=== PATIENT | female | born 1955 | race American Indian/Alaskan Native ===

== ENCOUNTER 2020-06-28 10:01 | Inpatient (IN) | payer MEDICARE, OTHER ==
--- NOTE | 2020-06-23 10:33 | Anesthesia Consultation ---
Anesthesia Consult and Med Hx Date of service: 06/28/20 - Airway Anesthetic Teeth Evaluation: Edentulous ROM Head & Neck: Adequate Mental/Hyoid Distance: Adequate Mallampati Class: Class II Intubation Access Assessment: Good - Pre-Operative Health Status ASA Pre-Surgery Classification: ASA2 Proposed Anesthetic Plan: General Nerve Block: TAP - Pulmonary Hx Smoking: Yes (Quit 1998) Hx Asthma: No Hx Respiratory Symptoms: No (+2FS) COPD: No Hx Pneumonia: No Hx Sleep Apnea: No (ROBERT PRE SCREEN LOW RISK) - Cardiovascular System Hx Hypertension: No (DENIES HTN-ONLY TAKES TO PROTECT KIDNEYS SHE SAID.) Hx Heart Attack/AMI: No Hx Angina: Yes (with exertion - relieved by rest-PATIENT SAID SHE NEVER HAD THIS ???) Hx Pacemaker: No Hx Internal Defibrillator: No Hx Heart Murmur: No - Central Nervous System Hx Neuromuscular Disorder: Yes (peripheral neuropathy) Hx Seizures: No CVA: No Hx Back Pain: Yes (lower) Hx Psychiatric Problems: Yes (Anxiety/Depression) - Gastrointestinal Hx Gastroesophageal Reflux Disease: Yes (rare) - Endocrine Hx Renal Disease: No Hx End Stage Renal Disease: No Hx Cirrhosis: No Hx Liver Disease: No Hx Insulin Dependent Diabetes: Yes (B) Hx Non-Insulin Dependent Diabetes: Yes Hx Thyroid Disease: No - Hematic Hx Anemia: No Hx Sickle Cell Disease: No - Other Systems Hx Alcohol Use: No Hx Substance Use: No Hx Cancer: No Hx Obesity: No
[2020-06-23 10:51] LABS: Hematocrit 40.3 % (30.3-42.9); Hemoglobin 13.5 gm/dl (10.1-14.3); Mean Corpuscular HGB Conc 33 % (30-34); Mean Corpuscular Volume 93 fl (79-97); Platelet Count 300 K/mm3 (140-440); Red Blood Count 4.35 M/mm3 (3.65-5.03); Red Cell Distribution Width 13.4 % (13.2-15.2)
[2020-06-23 11:01] LABS: BUN/Creatinine Ratio 9; Blood Urea Nitrogen 10 mg/dL (7-17); Calcium 10.4 mg/dL (8.4-10.2); Hemolysis Index 1
[2020-06-28] MEDS: LACTATED RINGERS 1,000 ML IV SCH ×2 (08:45→16:35)
--- NOTE | 2020-06-28 08:58 | Anesthesia Day of Surgery ---
Anesthesia Day of Surgery - Day of Surgery Patient Examined: Yes Patient H&P Reviewed: Yes Patient is NPO: Yes
--- NOTE | 2020-06-28 08:58 | Progress Note ---
Regional Anesthesia Block - Regional Anesthesia Block Start Time: 08:47 Stop Time: 08:54 Performed By:: LAVON VILLAGOMEZ Procedure: Bilateral Ultrasound Guided TAP Block Pt IDd, consent obtained, time out performed. Pt on monitor + O2 via NC, VS stable, sedation given per pre-op RN. Sterile prep. Landmarks identified with ultrasound. [1.5]cc skin wheel with 1% lidocaine. Needle advance in plane with ultrasound. [30]cc [0.25]% bupivacaine [w/ epi] + [4]mg decadron + [100]mcg clonidine injected incrementally with negative aspiration. Procedure repeated on opposite side. Pt tolerated procedure well, no immediate complications noted.
[~2020-06-28 10:01] MED LIST: ACETAMINOPHEN 500 MG TAB PO ONE; BUPIVACAINE-EPINEPHRINE/PF 0.25%-1:200,000 (10 ML) VIAL INFILTRATI ONE; BUPIVACAINE-EPINEPHRINE/PF 0.5%-1:200,000 (30 ML) VIAL INFILTRATI ONE; CELECOXIB 200 MG CAP PO NR; GABAPENTIN 300 MG CAP PO NR; LIDOCAINE (1%) 10 MG/1 ML VIAL 20 ML MDV ONE; LIDOCAINE MPF (2%) 20 MG/1 ML VIAL 5 ML ONE; MAGNESIUM OXIDE 400 MG TAB PO NR; MIDAZOLAM 2 MG/2 ML INJ IV NR; ONDANSETRON 4 MG/2 ML INJ IV PRN; ONDANSETRON 4 MG/2 ML INJ ONE; ROCURONIUM 50 MG/5 ML INJ IV ONE; SUCCINYLCHOLINE CHLORIDE 200 MG/10 ML INJ MDV ONE; ceFAZolin/Water 2 GM/20 ML 2 GM/20 ML SYRINGE IV NR; dexAMETHasone 20 MG/5 ML VIAL ONE; ePHEDrine SULFATE 50 MG/1 ML INJ ONE; fentaNYL 100 MCG/2 ML INJ IV NR; fentaNYL 100 MCG/2 ML INJ IV PRN; fentaNYL 100 MCG/2 ML INJ ONE; metroNIDAZOLE/NS 500 MG/100 ML 500 MG/100 ML BAG IV NR; propofoL 200 MG/20 ML VIAL IV ONE
[2020-06-28] MEDS ORDERED: SODIUM CHLORIDE 0.9% IRR 1,500 ML BOTTLE IR ONE (10:22)
[2020-06-28] MEDS ORDERED: WATER FOR IRRIG STERILE 1,500 ML BOTTLE IR ONE (10:50)
[2020-06-28] MEDS ORDERED: MINERAL OIL Light (Sterile) 10 ML VIAL TP ONE ×2 (10:58→11:00)
[2020-06-28] MEDS ORDERED: GLYCOPYRROLATE 0.4 MG/2 ML INJ ONE (12:06)
[2020-06-28] MEDS ORDERED: NEOSTIGMINE 10MG/10 ML INJ MDV ONE (12:06)
--- NOTE | 2020-06-28 13:17 | Post Operative Note ---
Pre-op diagnosis: sessile cecal polyp Post-op diagnosis: same Procedure: laparoscopic right hemicolectomy Anesthesia: GETA, other (TAP block) Surgeon: GERTRUDIS VERA Manipulator Operator: YAMILA GONSALES Estimated blood loss: 50-100ml Pathology: list (right colon and terminal ileum) Specimen disposition: to lab Condition: stable Disposition: PACU
[2020-06-28] MEDS ORDERED: ONDANSETRON 4 MG/2 ML INJ IV PRN ×2 (13:18→15:00)
--- NOTE | 2020-06-28 14:32 | Post Anesthesia Evaluation ---
- Post Anesthesia Evaluation Patient Participated: Yes Airway Patent: Yes Stable Respiratory Function: Yes Nausea/Vomiting: No Temp > 96.8F: Yes Pain Manageable: Yes Adequeate Hydration: Yes Anesthesia Complications: No
[2020-06-28] MEDS ORDERED: NALOXONE 0.4 MG/1 ML INJ IV PRN (15:00)
[2020-06-28] MEDS ORDERED: HYDROcodone/ACETAMINOPHEN 5-325 MG TAB PO PRN (15:00)
[2020-06-28] MEDS ORDERED: MORPHINE 2 MG/1 ML INJ IV PRN (15:00)
[2020-06-28] MEDS ORDERED: ACETAMINOPHEN 325 MG TAB PO PRN (15:00)
[2020-06-28] MEDS ORDERED: DEXTROSE 50% IN WATER (25GM) 50 ML SYRINGE IV PRN (15:32)
--- NOTE | 2020-06-28 15:48 | Operative Report ---
Operative Report Operative Report: Date: 06/28/20 Pre-op diagnosis: sessile cecal polyp Post-op diagnosis: same Procedure: laparoscopic right hemicolectomy Anesthesia: GETA, other (TAP block) Surgeon: GERTRUDIS VERA Counsellors: YAMILA GONSALES Estimated blood loss: 50-100ml Pathology: list (right colon and terminal ileum) Specimen disposition: to lab Condition: stable Disposition: PACU HPI and indication: Patient is a 64-year-old female who underwent surveillance colonoscopy with Dr. Diez. She was found to have a cecal polyp, sessile that was over several folds. The polyp was not able to be removed with conventional colonoscopy. She was not a candidate for Endo mucosal resection and a right hemicolectomy was recommended. After reviewing all pertinent labs and diagnostic imaging it was recommended that the patient proceed with a right hemicolectomy. All risk, benefits, alternatives to surgery were discussed with the patient questions answered. Consent was obtained for laparoscopic possible open right hemicolectomy, possible ostomy. Procedure in detail: The patient was identified the preop area, take back to operating room and placed on operating table in supine position. After anesthesia was induced a Calixto catheter was sterilely placed by the circulating nurse. The left arm was tucked and all bony prominences padded appropriately. The abdomen is prepped and draped in usual sterile fashion a timeout performed. A 5 mm supraumbilical incision was made through which a Veress needle was inserted. The Veress needle position was confirmed using saline drop test and the abdomen insufflated to 15 mmHg without incident. Once insufflation was complete the Veress needle was removed stewart a 5 mm Optiview trocar was placed through this incision under direct visualization. The abdomen was inspected and there was no underlying injury to any of the abdominal structures. An additional 5 mm left lower quadrant and left upper quadrant trocar was placed under direct visualization. The patient was placed in Trendelenburg and tilted to the left. Small bowel was retracted medially. An additional 5 mm epigastric port was placed for the assistant professor of dietetics surgeon. A medial to lateral dissection was performed. The colon was retracted cephalad and the ileocolic pedicle identified. The mesentery overlying the ileocolic pedicle was scored and retroperitoneal structures swept posteriorly in an avascular plane. The ureter and the duodenum were identified and visualized throughout the entire dissection. The dissection was carried out towards the hepatic flexure. Using a LigaSure the ileocolic vessels were skeletonized. Ileocolic vein and artery clipped with 2 clips proximally and one distally and ligated in between the clips using the LigaSure. The dissection was carried out towards the hepatic flexure and the right colic pedicle identified. This was also skeletonized and clipped. This was ligated in between the clips using the LigaSure. I then turned my attention to the lateral dissection. Adhesions from the terminal ileum, appendix to the lateral abdominal wall were dissected in an avascular plane using the LigaSure. White line of Toldt was dissected using the LigaSure and the colon swept medially. This dissection was carried out from the cecum to the hepatic flexure. Once this dissection was complete it was decided to place a wound protector. At this point, the epigastric 5 mm port was removed and the skin incision extended in the midline using a 15 blade. Dissection was carried down through skin and subcutaneous tissue using electrocautery until the fascia was encountered. The fascia was opened over a gloved finger while the abdomen was still insufflated. Once the fascial incision was complete the abdomen was desufflated and a Jaime wound protector with GelPort was placed into the incision. The right colon was brought out through the wound protector and any additional flimsy adhesions were transected using electrocautery. The proximal transection point at the terminal ileum was determined and a window made in the mesentery using bovie electrocautery. The small bowel was transected using a RORY 75 mm blue load stapler. The transverse colon transection point was chosen just to the right of the takeoff of the middle colic vessels. A window was made in the mesentery using Bovie electrocautery and the transverse colon transected using a RORY 75 mm blue load stapler. The mesentery of the specimen was then ligated using the LigaSure and the specimen passed off the table. There is no bleeding from the staple lines. The small bowel and transverse colon were aligned along the antimesenteric borders and a 3-0 silk stay stitch was placed. The mesentery of both were inspected and seen to be in anatomic position without twisting. An enterotomy and a colotomy were then made using electrocautery and a [id number] functional end-to-end antiperistaltic enterocolonic anastomosis was created using the RORY 75 millimeters blue load stapler. The common channel was inspected and there was no bleeding. The anastomosis was widely patent. The common channel was closed with a running 2-0 Vicryl full-thickness stitch. A second layer of Lembert sutures was placed using 3-0 silk sutures. The anastomosis was placed back into the abdomen in anatomic position and laid in the right upper quadrant without tension. the abdomen was reinsufflated and inspected. The surgical bed was irrigated with saline and hemostasis very carefully ensured. The remainder of the abdominal structures were unremarkable. There was no lesions seen on the liver upon gross examination. The anastomosis was once again examined and the mesentery laid straight without any twisting, and there was no tension on the anastomosis. The GelPort/wound protector and the ports were then removed and the abdomen darnell ufflated. The fascia of the midline incision was closed using a running #1 PDS stitch. The skin incisions were approximated using 4-0 Monocryl subcuticular stitches and skin glue. At the end of the case all sponge, instrument, sharp counts were correct x2. The Calixto catheter was removed. The patient was awoke from anesthesia extubated and taken to PACU in stable condition.
[2020-06-28] MEDS: HEPARIN 5,000 UNIT/1 ML VIAL SUB-Q SCH ×2 (16:35→23:26)
[2020-06-28] MEDS: metroNIDAZOLE/NS 500 MG/100 ML 500 MG/100 ML BAG IV SCH (16:35)
[2020-06-28] MEDS: D5W/0.45% NACL 1,000 ML IV SCH (16:36)
[2020-06-28] MEDS: INSULIN LISPRO 100 UNIT/ML VIAL 3 mL SUB-Q SCH ×2 (18:03→22:00)
[2020-06-28] MEDS ORDERED: GABAPENTIN 300 MG CAP PO SCH (22:00)
[2020-06-28] MEDS: CELECOXIB 200 MG CAP PO SCH (23:25)
[2020-06-28] MEDS: GABAPENTIN 100 MG CAP PO SCH (23:26)
[2020-06-28] MEDS: INSULIN GLARGINE 100 UNITS/ML SUB-Q SCH (23:34)
[2020-06-29] MEDS: metroNIDAZOLE/NS 500 MG/100 ML 500 MG/100 ML BAG IV SCH (01:16)
[2020-06-29] MEDS: D5W/0.45% NACL 1,000 ML IV SCH (05:59)
[2020-06-29] MEDS: HEPARIN 5,000 UNIT/1 ML VIAL SUB-Q SCH ×3 (06:01→22:05)
--- OUTSIDE RECORDS SUMMARY | 2020-06-29 06:33 | External Medical Summary ---
:1955 Author Organization [facility], [facility] Address [address] [place] [address] Care Team Providers Name Role Phone Matt, Jill Unavailable [phone] PROBLEMS No Information ALLERGIES No Known Allergies ENCOUNTERS from 1955 to 2020-06-27 Encounter Location Date Provider Diagnosis [address] Jun, Jill [facility] [address] [place], [place] Group [address] IMMUNIZATIONS No Information SOCIAL HISTORY Sex Assigned At : Social History Observation Description Sex Assigned At Unknown REASON FOR REFERRAL from 1955 to 2020-06-27 Diagnosis 1 Benign neoplasm of cecum Diagnosis 2 Polyp of colon Referral Organization [facility] General Surgery Referring Provider First Name Jill Referring Provider Last Name Matt Referring Provider Specialty General Surgery Referring Provider Referring Provider email [email or web address] Referred Provider [facility], - Referral Priority Routine VITAL SIGNS No information MEDICATIONS Medication SIG (Take, Route, Notes Start Date End Date Status Frequency, Duration) Tramadol HCl 50 MG 1 tablet as needed Orally Active Once a day Golytely 236 GM as directed Orally Jun, Active Fleet Enema 7-19 as directed Rectal Jun, Active GM/118ML Invokamet 150-1000 MG 1 tablet with meals Orally May, 020 Active Twice a day for 30 day(s) Lovastatin 40 MG 1 tablet with the evening Active meal Orally Once a day for 30 day(s) Lisinopril 20 MG 1 tablet Orally Once a day Active for 30 day(s) Levemir FlexTouch 100 as directed Subcutaneous Active UNIT/ML Gabapentin 300 MG 1 capsule Orally Once a Active day for 30 day(s) PROCEDURES No Information RESULTS No Results REASON FOR VISIT No Information MEDICAL (GENERAL) HISTORY Type Description Date Medical History diabetes Medical History htn Medical History joint pain Medical History back pain Medical History cholesterol Surgical History breast tumor 1977 Surgical History foot 1989 Surgical History colonoscopy 2019 [place] No Information Health Concerns No Information MEDICAL EQUIPMENT No Information MENTAL STATUS No Information FUNCTIONAL STATUS No Information ASSESSMENTS No Information PLAN OF TREATMENT Medication Medication Name Sig Start Date Stop Date Golytely 236 GM as directed Orally Jun, Fleet Enema 7-19 GM/118ML as directed Rectal Jun, Referrals Referral Date Details Next Appt Details Provider Name:Jill Gutierrez, 2020-06-28 1 1:30:00 AM, [address] [facility] [place], [address], Provider Name:Aguila Gao, 8 11:30:00 AM, [address] [facility], [place], [place], [address], Insurance Providers Payer Name Payer Payer Insured Patient Coverage Coverage Address Phone Name Relationship to Start Date End Date Insured Saskia [phone] [employer] [phone] [address] [address]
[2020-06-29 06:52] LABS: Basophils # (Auto) 0.1 K/mm3 (0.0-0.1); Basophils % (Auto) 0.5 % (0.0-1.8); Hemoglobin 11.6 gm/dl (10.1-14.3); Lymphocytes # (Auto) 1.1 K/mm3 (1.2-5.4); Lymphocytes % (Auto) 10.3 % (13.4-35.0); Mean Corpuscular HGB Conc 34 % (30-34); Mean Corpuscular Volume 93 fl (79-97); Monocytes # (Auto) 0.6 K/mm3 (0.0-0.8); Monocytes % (Auto) 5.4 % (0.0-7.3); Platelet Count 246 K/mm3 (140-440); Red Blood Count 3.67 M/mm3 (3.65-5.03); Red Cell Distribution Width 13.8 % (13.2-15.2)
[2020-06-29 07:07] LABS: BUN/Creatinine Ratio 15; Blood Urea Nitrogen 15 mg/dL (7-17); Hemolysis Index 5
[2020-06-29] MEDS: GABAPENTIN 100 MG CAP PO SCH (10:48)
[2020-06-29] MEDS: CELECOXIB 200 MG CAP PO SCH ×2 (10:49→22:06)
[2020-06-29] MEDS: INSULIN GLARGINE 100 UNITS/ML SUB-Q SCH ×2 (10:52→22:06)
[2020-06-29] MEDS: INSULIN LISPRO 100 UNIT/ML VIAL 3 mL SUB-Q SCH ×4 (10:59→22:08)
--- NOTE | 2020-06-29 12:20 | Progress Note ---
Assessment and Plan 64-year-old female status post laparoscopic right hemicolectomy, postop day 1 Pt stable. Doing well overall. Plan: 1. adv to full diet with dietary supplements 2. decrease IVF 3. prn PO pain control 4. continue home medications 5. DVT ppx 6. OOB/ambulate 7. path pending 8. IS/pulm toilet DC planning in 24 hours if patient continues to do well Subjective Date of service: 06/29/20 Narrative: Patient seen and examined. Complains of soreness in the right abdomen and near incisions. Pain is well controlled. Has been out of bed to use the restroom. Urinating on her own. Tolerating a clear liquid diet without nausea or vomiting. No flatus or BM. Objective Vital Signs - 12hr 06/29/20 06/29/20 04:06 07:00 Temperature 98.5 F 98.8 F Pulse Rate 80 72 Respiratory 18 18 Rate Blood Pressure 109/70 110/54 O2 Sat by Pulse 98 98 Oximetry - General physical appearance Narrative Exam: Gen.: Awake, alert, oriented 3. No apparent distress ENT: Trachea midline. No lymphadenopathy. No scleral icterus or conjunctival pallor CV: S1, S2 present Respiratory: No audible wheezes Abdomen: Soft, nondistended, mild tenderness to palpation in the right hemiabdomen. Incisions are clean, dry, intact. No rebound, rigidity, guarding Extremities: No clubbing, cyanosis, edema - Labs 06/29/20 06:20 06/29/20 06:20 Diabetes panel 06/29/20 Range/Units 06:20 Sodium 138 (137-145) mmol/L Potassium 4.1 (3.6-5.0) mmol/L Chloride 104.6 (98-107) mmol/L Carbon Dioxide 21 L (22-30) mmol/L BUN 15 (7-17) mg/dL Creatinine 1.0 (0.6-1.2) mg/dL Glucose 167 H (65-100) mg/dL Calcium 9.0 (8.4-10.2) mg/dL Calcium panel 06/29/20 Range/Units 06:20 Calcium 9.0 (8.4-10.2) mg/dL Pituitary panel 06/29/20 Range/Units 06:20 Sodium 138 (137-145) mmol/L Potassium 4.1 (3.6-5.0) mmol/L Chloride 104.6 (98-107) mmol/L Carbon Dioxide 21 L (22-30) mmol/L BUN 15 (7-17) mg/dL Creatinine 1.0 (0.6-1.2) mg/dL Glucose 167 H (65-100) mg/dL Calcium 9.0 (8.4-10.2) mg/dL Adrenal panel 06/29/20 Range/Units 06:20 Sodium 138 (137-145) mmol/L Potassium 4.1 (3.6-5.0) mmol/L Chloride 104.6 (98-107) mmol/L Carbon Dioxide 21 L (22-30) mmol/L BUN 15 (7-17) mg/dL Creatinine 1.0 (0.6-1.2) mg/dL Glucose 167 H (65-100) mg/dL Calcium 9.0 (8.4-10.2) mg/dL
[2020-06-29] MEDS: GABAPENTIN 300 MG CAP PO SCH ×2 (16:36→22:06)
[2020-06-30] MEDS: HEPARIN 5,000 UNIT/1 ML VIAL SUB-Q SCH (07:00)
[2020-06-30] MEDS: GABAPENTIN 300 MG CAP PO SCH ×2 (07:00→13:00)
[2020-06-30] MEDS: INSULIN LISPRO 100 UNIT/ML VIAL 3 mL SUB-Q SCH ×2 (07:30→11:23)
[2020-06-30] MEDS: INSULIN GLARGINE 100 UNITS/ML SUB-Q SCH (08:17)
[2020-06-30] MEDS: CELECOXIB 200 MG CAP PO SCH (08:52)
[2020-06-30 11:28] VITALS: BP 162/81
--- NOTE | 2020-06-30 14:18 | Discharge Summary ---
Providers - Providers Date of Admission: 06/28/20 14:02 Date of discharge: 06/30/20 Attending physician: GERTRUDIS VERA DO Primary care physician: WILLIAM KUMAR MD Hospitalization Reason for admission: 06/28/20 Condition: Good Procedures: Laparoscopic right hemicolectomy Hospital course: Pt admitted for observation. Post op course uncomplicated. Tolerating soft diet. Pain well controlled with oral pain medications. No n/v, f/c. Has been OOB. +Flatus and 1 large BM today. Disposition: DC- TO HOME OR SELFCARE Time spent for discharge: 30 minutes Core Measure Documentation - Palliative Care Palliative Care/ Comfort Measures: Not Applicable - Core Measures Any of the following diagnoses?: none Exam - Physical Exam Narrative exam: Gen: AAOx3. NAD CV: s1, S2+ Resp: even and unlabored Abd: soft, NT, ND. incisions c/d/i Ext: no c/c/e - Constitutional Vitals: Temp Pulse Resp BP Pulse Ox 98.6 F 78 18 162/81 95 06/30/20 11:16 06/30/20 11:16 06/30/20 11:16 06/30/20 11:16 06/30/20 11:16 Plan Activity: other (No heavy lifting) Diet: other (soft - mushy foods that are easy to digest, continue for next 4-5 days) Wound: open to air Follow up with: WILLIAM POPE MD [Primary Care Provider] - 7 Days GERTRUDIS VERA DO [Staff Physician] - 10 Days Prescriptions: HYDROcodone/APAP 5-325 [[place] 5-325 mg TAB] 1 each PO Q6H PRN #20 tablet PRN Reason: Pain , Severe (7-10)
== END 2020-06-30 16:33 | disposition home or self-care (01) | DRG 331 ==
LOC: 3B 14:02
PROVIDERS: ADMIT Surgery; ATTEND Surgery
PROC: 0DTF4ZZ Resection of Right Large Intestine, Percutaneous Endoscopic Approach (ICD-10-PCS; principal; 2020-06-28)
DX: D12.0 Benign neoplasm of cecum (principal); F41.9 Anxiety disorder, unspecified; K21.9 Gastro-esophageal reflux disease without esophagitis; F32.9 Major depressive disorder, single episode, unspecified; E11.9 Type 2 diabetes mellitus without complications; Z20.828 Contact with and (suspected) exposure to other viral communicable diseases; Z87.891 Personal history of nicotine dependence
CPT/HCPCS: 36415; 64450; 80048; 82962; 85025; 85027; 86850; 86900; 86901; 88307; 88309; 94760; G0378; J0330; J0690; J1100; J1644; J1815; J2250; J2270; J2405; J2704; J2710; J3010; J7120; U0003